=== PATIENT | female | born 1975 | race Caucasian/White ===

== ENCOUNTER 2016-06-16 08:04 | Emergency (ER) | payer SELFPAY ==
[2016-06-16 08:19] VITALS: O2SAT 96
--- NOTE | 2016-06-16 08:30 | ED.PDOC ---
History of Present Illness - General Chief Complaint: Upper Extremity Injury Stated Complaint: right shoulder pain Time Seen by Provider: 06/16/16 08:16 Source: patient, RN notes reviewed, Vital Signs reviewed Exam Limitations: no limitations - History of Present Illness Initial Comments: Patient fell off her porch 3 weeks ago landing on her outstretched hands. She is complaining of severe R anterior shoulder/clavicle pain. Occurred: other - 3 weeks ago Pain - Upper Extremity: severe: Shoulder, right Method of Injury: fell Improving Factors: immobilization Worsening Factors: movement Allergies/Adverse Reactions: Allergies NO KNOWN ALLERGY Allergy (Verified 06/16/16 08:19) Home Medications: Ambulatory Orders Acetaminophen W/ Codeine [Tylenol W/ CODEINE #3] 1 ea PO Q4HR PRN #15 06/16/16 Omeprazole Magnesium [Prilosec Otc] 20 mg PO DAILY 06/16/16 Review of Systems - Review of Systems Constitutional: States: no symptoms reported. Denies: chills, diaphoresis, fever EENTM: States: no symptoms reported Respiratory: States: no symptoms reported Cardiology: States: no symptoms reported Gastrointestinal/Abdominal: States: no symptoms reported Musculoskeletal: States: see HPI, joint pain Skin: States: no symptoms reported Neurological: States: numbness - of R fingertips, tingling Endocrine: States: no symptoms reported Past Medical History (General) - Patient Medical History Hx Stroke: No Hx Congestive Heart Failure: No Hx Diabetes: No Surgical History: no surgical history - Vaccination History Hx Tetanus, Diphtheria Vaccination: No Hx Influenza Vaccination: No Hx Pneumococcal Vaccination: No - Social History Hx Tobacco Use: Yes Hx Alcohol Use: No Hx Substance Use: No Hx Depression: No - Activities of Daily Living Hospice Agency (if applicable):: None - Female History Patient is a Female of Child Bearing Age (10 -59 yrs old): Yes Patient : No Family Medical History - Family History Father Living Status: Still Living Hx Cardiac Disease: Yes - pacemaker placement Physical Exam - Physical Exam General Appearance: Alert, Anxious, No apparent distress, Well Developed, Well Groomed, Well Hydrated, Well Nourished Neck: full range of motion Cardiovascular/Respiratory: normal peripheral pulses Shoulder Exam: bone tenderness - over medial aspect of clavicle, no joint tenderness @ shoulder joint, deformity, limited ROM - Due to pain Elbow/Forearm Exam: normal inspection, non-tender, no evidence of injury, normal ROM Wrist Exam: normal inspection, non-tender, no evidence of injury, normal ROM Hand Exam: normal inspection, non-tender, normal ROM Neuro/Tendon: normal sensation, normal motor functions, normal tendon functions , no evidence tendon injury Mental Status: alert, oriented x 3 Skin Exam: normal color, warm/dry Progress - EKG/XRAY/CT XRAY: R clavicle - no fracture per Radiology Departure - Departure Clinical Impression: Clavicle pain, Sprain of shoulder Time of Disposition: 08:46 Disposition: Discharge to Home or Self Care Condition: Good Departure Forms: ED Discharge - Pt. Copy, Patient Portal Self Enrollment Instructions: DI for Shoulder Sprain Diet: resume usual diet Referrals: Zachary Fernandez MD [Active Staff] - 1-5 Days SAVANNA HERNANDEZ [Primary Care Provider] - 1-2 Weeks Prescriptions: Acetaminophen W/ Codeine [Tylenol W/ CODEINE #3] 1 ea PO Q4HR PRN #15 PRN Reason: Moderate To Severe Pain Home Medications: Ambulatory Orders Acetaminophen W/ Codeine [Tylenol W/ CODEINE #3] 1 ea PO Q4HR PRN #15 06/16/16 Omeprazole Magnesium [Prilosec Otc] 20 mg PO DAILY 06/16/16
--- NOTE | 2016-06-16 08:42 | RAD ---
EXAM DESCRIPTION: Clavicle,Right CLINICAL HISTORY: Pain s/p fall 3 weeks ago COMPARISON: Chest x-ray dated 10 February 2015 TECHNIQUE: Two views FINDINGS: Mild degenerative changes are observed in the acromio clavicular joint. The clavicle is intact. No fracturing is detected. No chronic clavicular joint separation is detected. 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 Exam is otherwise unremarkable. Electronically signed by: Shakeel Shrestha MD 06/16/2016 8:41 AM NEONATAL PEDIATRIC NURSE
[2016-06-16 09:11] VITALS: BP 163/121; TEMP 98.4
== END 2016-06-16 09:07 | disposition home or self-care (01) ==
LOC: ER 08:04
DX: S43.409A Unspecified sprain of unspecified shoulder joint, initial encounter (principal); Z87.891 Personal history of nicotine dependence; W17.89XA Other fall from one level to another, initial encounter; Y92.008 Other place in unspecified non-institutional (private) residence as the place of occurrence of the external cause

== ENCOUNTER 2017-09-27 19:03 | Emergency (ER) | payer SELFPAY ==
[2017-09-27] MEDS ORDERED: ASPIRIN TABLET 325 MG TAB PO ONE ×2 (19:05→19:47)
[2017-09-27] MEDS ORDERED: ONDANSETRON INJ 4 MG/2 ML VIAL IV ONE ×2 (19:05→19:47)
[2017-09-27] MEDS: NITROGLYCERIN 0.4 MG 25 EA TAB SL ONE ×2 (19:18→19:23)
[2017-09-27] MEDS ORDERED: NITROGLYCERIN/D5W IV 250 ML IVS ONE (19:25)
[2017-09-27] MEDS ORDERED: TENECTEPLASE 50 MG VIAL ONE (19:25)
--- NOTE | 2017-09-27 19:28 | RAD ---
EXAM DESCRIPTION: Chest,1 View CLINICAL HISTORY: 42 years Female chest pain, difficulty breathing COMPARISON: 02/10/2015 FINDINGS: Cardiac size and mediastinal contour are stable. There is increased density in both lung bases right greater than left concerning for infiltrate and/or pneumonia. No definite effusion or pneumothorax. IMPRESSION: Findings concerning for bilateral basilar infiltrates right greater than left Electronically signed by: Marilou Salas MD 09/27/2017 7:27 PM CDT
--- NOTE | 2017-09-27 19:30 | ED.PDOC ---
History of Present Illness - General Chief Complaint: Chest Pain/HI Stated Complaint: CP, SOB Time Seen by Provider: 09/27/17 19:27 Source: patient Exam Limitations: no limitations - History of Present Illness Initial Comments: Sana Perez 42 y/o female came to er initally feeling dizzy and with onset of sharp chest pains across her chest while she was getting inside their house. Has history of HTN,chronic smoker. Timing/Duration: 1-3 hours Severity/Quality: sharp Location: central Chest Pain Radiation: no radiation Activities at Onset: none Prior Chest Pain/Cardiac Workup: no prior chest pain, no prior cardiac workup Improving Factors: nothing Worsening Factors: nothing Nitro Today/Relief: 0.4 mg x 1, provided by ED, no relief Aspirin Treatment Today: 325 mg x 1, provided by ED Associated Symptoms: dizziness, nausea/vomiting Allergies/Adverse Reactions: Allergies NO KNOWN ALLERGY Allergy (Verified 06/16/16 08:19) Home Medications: Ambulatory Orders Acetaminophen W/ Codeine [Tylenol W/ CODEINE #3] 1 ea PO Q4HR PRN #15 06/16/16 Omeprazole Magnesium [Prilosec Otc] 20 mg PO DAILY 06/16/16 Review of Systems - Review of Systems Constitutional: States: no symptoms reported EENTM: States: no symptoms reported Respiratory: States: no symptoms reported Cardiology: States: see HPI Gastrointestinal/Abdominal: States: see HPI Skin: States: no symptoms reported Endocrine: States: no symptoms reported All other Systems: Reviewed and Negative Past Medical History (General) - Patient Medical History Hx Stroke: No Hx Congestive Heart Failure: No Hx Hypertension: Yes Hx Diabetes: No - Vaccination History Hx Tetanus, Diphtheria Vaccination: No Hx Influenza Vaccination: No Hx Pneumococcal Vaccination: No - Social History Hx Tobacco Use: Yes Hx Alcohol Use: No Hx Substance Use: No Hx Depression: No Hx Physical Abuse: No Hx Emotional Abuse: No - Female History Patient : No Family Medical History - Family History Father Living Status: Still Living Hx Cardiac Disease: Yes - pacemaker placement Physical Exam - Physical Exam General Appearance: Anxious, No apparent distress, Other - in pain Eyes, Ears, Nose, Throat Exam: normal ENT inspection Neck: non-tender, supple Respiratory: lungs clear, normal breath sounds, no respiratory distress Cardiovascular/Chest: normal peripheral pulses, regular rate, rhythm, no murmur Peripheral Pulses: radial,right: 2+, radial,left: 2+ Gastrointestinal/Abdominal: non tender, soft, no organomegaly Extremity: non-tender, normal inspection, no calf tenderness Neurologic: alert, normal mood/affect, oriented x 3 Progress - EKG/XRAY/CT Comments: hr 86-acute anterior wall HI Departure - Departure Clinical Impression: Acute HI, anterior wall Chest pain Qualifiers: Chest pain type: chest pain due to myocardial ischemia Ischemic chest pain type : unstable angina pectoris Qualified Code(s): I20.0 - Unstable angina Time of Disposition: 19:46 Disposition: Transfer to Hospital Condition: Fair Departure Forms: Patient Portal Self Enrollment Referrals: SAVANNA HERNANDEZ [Primary Care Provider] - 1-2 Weeks Home Medications: Ambulatory Orders Acetaminophen W/ Codeine [Tylenol W/ CODEINE #3] 1 ea PO Q4HR PRN #15 06/16/16 Omeprazole Magnesium [Prilosec Otc] 20 mg PO DAILY 06/16/16 Transfer to Outside Facility - Transfer Information Accepting Provider:: D/W Dr. 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
[2017-09-27] MEDS ORDERED: TENECTEPLASE 50 MG VIAL IV ONE (19:35)
[2017-09-27] MEDS ORDERED: MORPHINE SULFATE INJ 10 MG/ML VIAL ONE (19:42)
[2017-09-27] MEDS ORDERED: SODIUM CHLORIDE 0.9% (FLUSH) 10 ML SYG IV PRN (19:47)
[2017-09-27] MEDS ORDERED: NITROGLYCERIN 0.4 MG 25 EA TAB SL ONE (19:47)
[2017-09-27] MEDS ORDERED: HEPARIN SODIUM (PORCINE) 5,000 U/ML VIAL IV ONE (19:55)
[2017-09-27] MEDS ORDERED: HEPARIN SODIUM (PORCINE) 5,000 U/ML VIAL ONE (19:55)
[2017-09-27] MEDS ORDERED: MORPHINE SULFATE INJ 10 MG/ML VIAL IV ONE (19:57)
[2017-09-27 20:07] VITALS: TEMP 97.5; O2SAT 100
[2017-09-27 20:13] VITALS: BP 159/94
[2017-09-27] MEDS ORDERED: NITROGLYCERIN/D5W IV 50,000 MCG in PREMIX BOTTLE 1 BOTTLE IVS SCH (20:30)
== END 2017-09-27 20:15 | disposition short-term general hospital (02) ==
LOC: ER 19:03
DX: I21.09 ST elevation (STEMI) myocardial infarction involving other coronary artery of anterior wall (principal); I20.0 Unstable angina; I10 Essential (primary) hypertension; F17.200 Nicotine dependence, unspecified, uncomplicated
CPT/HCPCS: 36415; 71045; 80048; 82550; 82553; 83880; 84484; 85025; 85379; 85610; 85730; 93005; J1644; J2270; J2405; J3101

== ENCOUNTER 2018-08-25 15:21 | Emergency (ER) | payer SELFPAY ==
--- NOTE | 2018-08-25 15:36 | ED.PDOC ---
History of Present Illness - General Time Seen by Provider: 08/25/18 15:33 Source: patient, Vital Signs reviewed Exam Limitations: no limitations Additional Information: 43 YEAR OLD PRESENTS WITH CHEST PAIN RADIATING TO THE LEFT SHOUDLER AND TO THE BACK INTERMITTANT SINCE LAST 3 DAYS SHE STATES THE PAIN WHICH IS SQEEZING IN NATURE LAST APPROXIMATLEY AN HOUR NO ASSOCIATED SHORTNTESS OF BREATH DIAPHORESIS NAUSEA - History of Present Illness Timing/Duration: intermittent Severity: moderate Improving Factors: nothing Worsening Factors: nothing Associated Symptoms: chest pain Allergies/Adverse Reactions: Allergies NO KNOWN ALLERGY Allergy (Verified 08/25/18 15:37) Home Medications: Ambulatory Orders Aspirin [Adult Aspirin Regimen] 81 mg PO DAILY 08/25/18 Atorvastatin Calcium 40 mg PO DAILY 08/25/18 Carvedilol 6.25 mg PO BID 08/25/18 Clopidogrel Bisulfate [Plavix] 75 mg PO DAILY 08/25/18 Lisinopril 5 mg PO DAILY 08/25/18 Nitroglycerin [Nitrostat] 0.4 mg SL PRN PRN 08/25/18 Ranitidine HCl 150 mg PO DAILY 08/25/18 Review of Systems - Review of Systems Constitutional: States: no symptoms reported EENTM: States: no symptoms reported Respiratory: States: no symptoms reported Cardiology: States: no symptoms reported Gastrointestinal/Abdominal: States: no symptoms reported Genitourinary: States: no symptoms reported Musculoskeletal: States: no symptoms reported Skin: States: no symptoms reported Neurological: States: no symptoms reported Endocrine: States: no symptoms reported Past Medical History (General) - Patient Medical History Hx Seizures: No Hx Stroke: No Hx Dementia: No Hx Asthma: No Hx of COPD: No Hx Cardiac Disorders: No Hx Congestive Heart Failure: No Hx Pacemaker: No Hx Hypertension: Yes Hx Thyroid Disease: No Hx Diabetes: No Hx Gastroesophageal Reflux: No Hx Renal Disease: No Hx Cancer: No Hx of HIV: No Hx Hepatitis C: No Hx MRSA: No - Vaccination History Hx Tetanus, Diphtheria Vaccination: No Hx Influenza Vaccination: No Hx Pneumococcal Vaccination: No - Social History Hx Tobacco Use: Yes Hx Alcohol Use: No Hx Substance Use: No Hx Depression: No Hx Physical Abuse: No Hx Emotional Abuse: No - Female History Patient : No Family Medical History - Family History Father Living Status: Still Living Hx Family Stroke: Yes Hx Cardiac Disease: Yes - pacemaker placement Mother Living Status: Unknown Hx Family Hypertension: Yes Hx Family Diabetes: Yes Physical Exam - Physical Exam General Appearance: Alert, Comfortable Eye Exam: bilateral normal Ears, Nose, Throat: hearing grossly normal, normal ENT inspection, normal pharynx Neck: non-tender, full range of motion, supple Respiratory: chest non-tender, lungs clear, normal breath sounds Cardiovascular/Chest: normal peripheral pulses, regular rate, rhythm, no edema, no gallop, no JVD Back Exam: normal inspection, no CVA tenderness, no vertebral tenderness Extremity: normal range of motion, non-tender, normal inspection Skin Exam: normal color, warm/dry Progress - Progress Progress: 08/25/18 15:42 EKG NORMAL SEPTEMBER 27 2017 HER EKG SHOWED AN ACUTE ANTEROSEPTAL NM THOSE CHANEGES ARE NOT SEEN TODAY CATH REPORT FROM [facility] REVIEWED 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 WITH 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[employer] [facility] OBS DISCUSSED WITH DR CLAYTON MAYORGA 08/25/18 17:40 - EKG/XRAY/CT EKG: Sinus, no ST T wave changes Comments: NORMAL NO INJURY NO INFARCTION NO ISCHEMIA NO ARRYTHMIA COMPARED TO September - Departure Clinical Impression: Angina at rest, Cardiovascular disease, Chest pain Time of Disposition: 17:40 Disposition: Transfer to Hospital Condition: Good Referrals: SAVANNA HERNANDEZ [Primary Care Provider] - 1-2 Weeks Home Medications: Ambulatory Orders Aspirin [Adult Aspirin Regimen] 81 mg PO DAILY 08/25/18 Atorvastatin Calcium 40 mg PO DAILY 08/25/18 Carvedilol 6.25 mg PO BID 08/25/18 Clopidogrel Bisulfate [Plavix] 75 mg PO DAILY 08/25/18 Lisinopril 5 mg PO DAILY 08/25/18 Nitroglycerin [Nitrostat] 0.4 mg SL PRN PRN 08/25/18 Ranitidine HCl 150 mg PO DAILY 08/25/18 Transfer to Outside Facility - Transfer Information Accepting Provider:: DR Daniel MAYORGA Accepting Facility: [facility] Reason for Transfer: required specialist not available
--- NOTE | 2018-08-25 16:05 | RAD ---
EXAM DESCRIPTION: Chest,1 View CLINICAL HISTORY: 43 years Female, FALL COMPARISON: Previous study September 27, 2017 TECHNIQUE: AP portable chest. FINDINGS: Heart size is prominent with normal pulmonary vascularity. No consolidating infiltrate. No pulmonary mass or worrisome nodule. No pneumothorax or pleural effusion. Bones are unremarkable. IMPRESSION: No acute process is identified in the chest. Electronically signed by: Anthony Abad MD 08/25/2018 4:02 PM CDT
--- NOTE | 2018-08-25 16:06 | RAD ---
EXAM DESCRIPTION: Knee,Left 2 or More Views CLINICAL HISTORY: 43 years, Female, FALL COMPARISON: None TECHNIQUE: Two views of the left knee FINDINGS: No fracture or dislocation. Bones appear normally mineralized with normal trabecular pattern. Normal appearance of medial and lateral compartments on frontal view. Lateral view shows normal position of the patella. Mild anterior-inferior patellar spurring/enthesopathy. No suprapatellar knee joint effusion. Normal contour of quadriceps and patellar tendons. IMPRESSION: Negative for fracture or dislocation. Electronically signed by: Anthony Abad MD 08/25/2018 4:04 PM CDT
[2018-08-25] MEDS ORDERED: NITROGLYCERIN 0.4 MG 25 EA TAB SL ONE (17:47)
[2018-08-25] MEDS: NITROGLYCERIN 0.4 MG 25 EA TAB SL ONE (17:53)
[2018-08-25 18:04] VITALS: BP 127/84; TEMP 98.5; O2SAT 99
== END 2018-08-25 18:04 | disposition short-term general hospital (02) ==
LOC: ER 15:21
DX: I25.119 Atherosclerotic heart disease of native coronary artery with unspecified angina pectoris (principal); I10 Essential (primary) hypertension; Z87.891 Personal history of nicotine dependence; Z79.02 Long term (current) use of antithrombotics/antiplatelets; Z79.82 Long term (current) use of aspirin; Z79.899 Other long term (current) drug therapy

== ENCOUNTER → 2018-09-16 | Outpatient (CLI) | payer MEDICAID ==
--- NOTE | 2018-09-17 14:09 | MRI ---
Study: MRI of the Left Knee. Indication: PAIN IN LEFT KNEE Technique: Multiplanar, multi sequence MRI of the left knee was obtained without intravenous contrast. Comparison: Radiographs August 25, 2018. Findings: Examination is moderately motion degraded Mild mucoid degeneration ACL without acute tear. PCL, MCL, and lateral collateral ligament complex intact. Obliquely oriented degenerative signal posterior horn and body medial meniscus without definitive tear. Degenerative signal posterior root attachment lateral meniscus. Grade 2 and 3 chondral thinning medial knee compartment with grade 1-2 changes lateral compartment. Patellofemoral extensor mechanism intact. Patella normally located. No high-grade chondral defect patellofemoral compartment. Small knee effusion. No acute fracture. Red marrow reconversion suspected throughout the knee. Impression: Moderate to severely motion degraded examination. A repeat exam is recommended when the patient can tolerate. Mild mucoid degeneration ACL. Degenerative signal changes medial meniscus and lateral meniscus without appreciable tear. Grade 2/3 chondrosis medial knee compartment with grade 1-2 changes lateral compartment. Small knee effusion. Red marrow reconversion suspected throughout the knee. Electronically signed by: Boyd Cleveland MD 09/17/2018 2:07 PM CDT
== END ==
LOC: MRI 10:27
PROVIDERS: ATTEND Family Medicine
DX: M17.12 Unilateral primary osteoarthritis, left knee (principal)

== ENCOUNTER → 2018-12-16 | Outpatient (CLI) | payer MEDICAID ==
--- NOTE | 2018-12-16 19:59 | US ---
US THYROID CLINICAL STATEMENT: E04.1, Z01.818, Z00.00, I10, Z13.220. COMPARISON: None TECHNIQUE: Transcutaneous scanning, grayscale and Doppler modes. FINDINGS: Size right thyroid lobe: 4.5 x 2.0 x 2.0 cm Size left thyroid lobe: 4.2 x 1.5 x 1.4 cm Size isthmus: 0.31 cm Estimated total number of nodules greater than or equal to 1 cm: 3. No distinct cysts, no large calcifications, and no parenchymal edema in the thyroid gland. Nodule 1: Size: 2.3 x 1.8 x 1.2 cm Location: Right Mid Composition: solid or almost completely solid: 2 points Echogenicity: hypoechoic: 2 points Shape: wider than tall: 0 points Margins: smooth: 0 points Echogenic foci: none: 0 points ACR Total Points: 4; ACR TI-RADS risk category: TR4 - moderately suspicious nodule. Nodule 2: Size: 1.2 x 1.1 x 0.9 cm Location: Right Lower Composition: solid or almost completely solid: 2 points Echogenicity: hypoechoic: 2 points Shape: taller than wide: 3 points Margins: smooth: 0 points Echogenic foci: none: 0 points ACR Total Points: >/= 7; ACR TI-RADS risk category: TR5 - highly suspicious nodule. Nodule 3: Size: 1.4 x 0.6 x 0.7 cm Location: Left Mid Composition: solid or almost completely solid: 2 points Echogenicity: hypoechoic: 2 points Shape: wider than tall: 0 points Margins: smooth: 0 points Echogenic foci: none: 0 points ACR Total Points: 4; ACR TI-RADS risk category: TR4 - moderately suspicious nodule. No dominant solid mass or distinct cyst in the surrounding soft tissues. IMPRESSION: 1. Nodule 1: ACR TI-RADS 2017 Category TR4. Recommend: Ultrasound-guided fine needle aspiration. Recommendations based upon [facility] Best Practice recommendations and ACR TI-RADS 2017 guidelines. Please see below*. 2. Nodule 2: ACR TI-RADS 2017 Category TR5. Recommend: Ultrasound-guided fine needle aspiration 3. Nodule 3: ACR TI-RADS 2017 Category TR4. Recommend: Follow-up ultrasound in 1 year. 4. The soft tissue around the thyroid gland is unremarkable. *ACR TI-RADS 2017 Recommendations for imaging follow-up of nodules: TR1: No FNA or follow up TR2: No FNA or follow up TR3: FNA if >/= 2.5 cm, follow up if 1.5 - 2.4 cm in 1, 3, and 5 years TR4: FNA if >/= 1.5 cm, follow up if 1.0 - 1.4 cm in 1, 2, 3, and 5 years TR5: FNA if >/= 1.0 cm, follow up if 0.5 - 0.9 cm every year for 5 years ACR TI-RADS recommends that no more than two nodules with the highest ACR TI-RADS total point should be biopsied and no more than four nodules should be followed. These recommendations do not apply to patients with increased risk for thyroid cancer or patients with symptomatic thyroid disease. Electronically signed by: Peter Ocampo MD 12/16/2018 7:58 PM CDT
== END ==
LOC: US 09:30
PROVIDERS: ATTEND Family Medicine
DX: Z01.818 Encounter for other preprocedural examination (principal); E04.2 Nontoxic multinodular goiter; I10 Essential (primary) hypertension; Z13.220 Encounter for screening for lipoid disorders

== ENCOUNTER 2018-12-28 05:24 | Day surgery (SDC) | payer MEDICAID, OTHER ==
--- NOTE | 2018-12-27 13:09 | HP ---
CHIEF COMPLAINT: Left knee pain. HISTORY OF PRESENT ILLNESS: Sana is a 43-year-old female with a history of pain in the left knee that has been secondary to several falls. The first one was about 3 months ago. She has had aching and sharp pain within the knee which has been up to a 10 in intensity. It is causing her difficulty with daily activities. She has gotten no significant relief with any type of conservative measures recently. Aggravating factors include weightbearing and range of motion. Although she got some very short-lived relief from an injection, it was not long enough to consider doing another. Because of her ongoing symptoms, she has requested operative intervention. After discussing the risks, benefits and alternatives to that, she has given informed consent. PAST SURGICAL HISTORY: Tubal ligation. MEDICATIONS: 1. Lisinopril. 2. Ranitidine. 3. Carvedilol. 4. Atorvastatin. 5. Nitroglycerin. 6. Plavix. 7. Aspirin. PAIN CONTRACT: None. ALLERGIES: NO KNOWN DRUG ALLERGIES. CODE STATUS: Full code. IMMUNIZATIONS: Up to date. SOCIAL HISTORY: The patient does not drink, smoke or use any illicit drugs. FAMILY HISTORY: None pertinent to today's complaint. REVIEW OF SYSTEMS: Negative except as indicated in the History of Present Illness. PHYSICAL EXAMINATION: VITAL SIGNS: Blood pressure 126/87. Pulse 55. Height 5'4". Weight 184 pounds. MENTAL STATUS: The patient is awake, alert, and is able to give a good history and participate in the physical. The patient is oriented to person, place and time. SKIN: Normal tone and turgor. HEENT: Normocephalic, atraumatic. Pupils equal, round and reactive. Mucosal membranes are moist. NECK: Normal range of motion. No thyromegaly, no lymphadenopathy. CHEST: Normal respiratory excursion. CARDIAC: Regular rate and rhythm. No murmurs, rubs or gallops. MUSCULOSKELETAL: The knee is severely tender to palpation diffusely and actually today has a mild effusion. She has intact sensation. She has difficulty with full extension today and flexion beyond 90 degrees causes severe pain. It is warm and well perfused. She has no discernible varus/valgus or anterior/posterior laxity although she is having some difficulty with relaxing to get a full exam. The medial joint-line is very tender as well. IMAGING: My review of the x-rays show no acute abnormality. MRI was done and unfortunately there is significant motion artifact. Good interpretation is unfortunately difficult. ASSESSMENT: 1. Knee pain. 2. Knee sprain. PLAN: The plan at this point is for knee arthroscopy. We have discussed the risks, benefits, and alternatives to that and the patient has given informed consent. #[id number] MTDD
[2018-12-28] MEDS ORDERED: ceFAZolin SODIUM 1 GM VIAL ONE ×2 (06:06→07:02)
[2018-12-28] MEDS ORDERED: SODIUM CHL 0.9% 100ML MINI-BAG 100 ML IVPB ONE (06:06)
[2018-12-28] MEDS ORDERED: LACTATED RINGERS 1,000 ML ONE (06:06)
[2018-12-28] MEDS ORDERED: fentaNYL CITRATE INJ 50 MCG/ML AMP ONE (09:08)
[2018-12-28] MEDS ORDERED: MIDAZOLAM INJ 2 MG/2 ML VIAL ONE (09:08)
[2018-12-28] MEDS ORDERED: KETAMINE HCL 50 MG/ML SYG IV ONE (09:10)
[2018-12-28] MEDS ORDERED: ONDANSETRON INJ 4 MG/2 ML VIAL ONE (09:24)
[2018-12-28] MEDS: ceFAZolin SODIUM 1 GM VIAL ONE ×2 (09:51→10:13)
[2018-12-28] MEDS: BUPIVACAINE LIPOSOME 13.3 MG/ML VIAL INJ ONE ×2 (09:51→10:13)
[2018-12-28] MEDS: BUPIVACAINE 0.5% 30 ML VIAL INJ ONE ×2 (09:51→10:13)
[2018-12-28] MEDS: VANCOMYCIN HCL INJ 1,000 MG VIAL IVPB ONE ×2 (09:51→10:13)
[2018-12-28] MEDS ORDERED: KETOROLAC TROMETHAMINE INJ 30 MG/ML VIAL IV ONE (10:00)
[2018-12-28] MEDS ORDERED: LIDOCAINE 1% 10 ML VIAL INJ ONE (10:00)
[2018-12-28] MEDS ORDERED: PROPOFOL 200 MG/20 ML VIAL IV ONE (10:00)
[2018-12-28] MEDS ORDERED: DEXAMETHASONE INJ 10 MG/ML VIAL IV ONE (10:00)
[2018-12-28] MEDS ORDERED: ONDANSETRON INJ 4 MG/2 ML VIAL IV ONE (10:00)
[2018-12-28] MEDS ORDERED: PROMETHAZINE HCL INJ 25 MG/ML VIAL ONE (10:37)
[2018-12-28] MEDS ORDERED: SODIUM CHLORIDE 0.9% 100ML 100 ML IVPB ONE (10:37)
[2018-12-28 12:08] VITALS: BP 128/70; TEMP 97.9; O2SAT 98
--- NOTE | 2018-12-31 09:09 | OP ---
DATE OF PROCEDURE: 12/28/18 PREOPERATIVE DIAGNOSIS: 1. Knee pain. POSTOPERATIVE DIAGNOSIS: 1. Flap tear of cartilage off the medial femoral condyle. 2. Large medial plica. 3. Chondromalacia. PROCEDURE: 1. Debridement. 2. Removal of plica and synovium. SURGEON: Zachary Fernandez MD. COOK STATION: Peter Carmichael CST, SA-C. ANESTHESIA: General anesthesia. COMPLICATIONS: None. FINDINGS: 1. Grade 3 to 4 changes on the medial tibial plateau. 2. Stable medial meniscus with some slight degenerative fraying. 3. Normal ACL and normal PCL. 4. Softening of cartilage in the lateral compartment. 5. Normal lateral gutter. 6. Normal suprapatellar pouch. 7. Grade 3 to 4 cartilaginous changes of the patellofemoral joint. 8. Large medial plica overlying the medial femoral condyle. 9. Cartilaginous flap on the medial femoral condyle extending into the medial gutter. INDICATION: Ms. Beckford has a history of severe knee pain that has been predominantly localized to the medial aspect. Despite that, she has had some diffuse pain and with patella mobilization. She has tried conservative measures, however, has failed to gain relief. As such, she has requested operative intervention. After discussing the risks, benefits and alternatives to that, the patient has given informed consent for knee arthroscopy. PROCEDURE: The patient was brought to the Operating Room and placed in supine position. General anesthesia was induced and the patient's leg was sterilely prepped and draped. Following prepping and draping, standard anteromedial and anterolateral portals were established. Diagnostic arthroscopy was carried out with the above findings. Following that, attention was first focused on the flap tear noted above. A 3.5 mm full radius shaver was used to debride the tear. The medial plica was then addressed through the medial portal. It was fully removed. The chondral surface of the patella was debrided and thoroughly probed to ensure stable base without any evidence of instability. The knee was thoroughly irrigated. The wounds were closed with Nylon suture. Sterile dressings were placed. The patient was awoken from anesthesia and taken to Recovery. POSTOPERATIVE PLAN: The patient will be non-weightbearing until she follows up with us in two days. We will consider doing physical therapy at that time. #[id number] [facility]
== END 2018-12-28 11:50 | disposition home or self-care (01) ==
LOC: AMB 05:24
PROVIDERS: ATTEND Orthopaedic Surgery
DX: S83.412A Sprain of medial collateral ligament of left knee, initial encounter (principal); M67.52 Plica syndrome, left knee; M94.262 Chondromalacia, left knee
CPT/HCPCS: 01400; 29876; 80307; 81025; J0690; J1100; J1885; J2250; J2405; J2550; J3010; J3370; J3490; J7050; J7120

== ENCOUNTER → 2018-12-30 | Outpatient (CLI) | payer OTHER | LOC: YCFC.O 11:49 | PROVIDERS: ATTEND Family Medicine | DX: R31.9 Hematuria, unspecified (principal) ==

== ENCOUNTER → 2019-03-08 | Outpatient (CLI) | payer OTHER | END | disposition home or self-care (01) | LOC: LAB.O 14:00 | PROVIDERS: ATTEND Otolaryngology | DX: D44.0 Neoplasm of uncertain behavior of thyroid gland (principal) ==